=== PATIENT | male | born 1990 ===

== ENCOUNTER 2019-12-19 23:03 | Emergency (ER) | payer SELFPAY ==
[~2019-12-19] VITALS: Ht 172.7 cm; Wt 59.1 kg
[~2019-12-19 23:03] MED LIST: AMOXICILLIN875 MG PO; NORCO 325 MG-51 TAB PO
[2019-12-19 23:09] VITALS: BP 102/71; TEMP 97.6
[2019-12-20 00:06] VITALS: PULSE 67
== END 2019-12-20 00:07 | disposition home or self-care (01) ==
LOC: COL.ER 23:03
DX: K08.89 Other specified disorders of teeth and supporting structures (principal); F17.200 Nicotine dependence, unspecified, uncomplicated

== ENCOUNTER 2021-01-02 08:45 | Emergency (ER) | payer SELFPAY ==
[~2021-01-02] VITALS: Ht 172.7 cm; Wt 63.6 kg
[2021-01-02 08:51] VITALS: BP 108/69; PULSE 75; TEMP 97.6
[2021-01-02] MEDS ORDERED: AKTOB 5 ML5 ML OD (09:12)
== END 2021-01-02 09:25 | disposition home or self-care (01) ==
LOC: COL.ER 08:45
DX: H18.821 Corneal disorder due to contact lens, right eye (principal); F17.200 Nicotine dependence, unspecified, uncomplicated

== ENCOUNTER 2021-03-03 00:16 | Inpatient (IN) | payer SELFPAY ==
[~2021-03-03] VITALS: Ht 170.2 cm; Wt 75.5 kg
[2021-03-03] VITALS (40 sets, daily range): BP systolic 122–165; BP diastolic 78–99; PULSE 85–118; O2SAT 95–100
[~2021-03-03 00:16] MED LIST changes: +AKTOB 5 ML5 ML OD
[2021-03-03 00:56] LABS: BASO % 0.4 % (0.0-2.0); EOS # 0.1 K/mm3 (0.0-0.7); EOS % 1.6 % (0-4.0); GRAN # 5.8 K/mm3 (1.4-6.5); GRAN % 71.9 % (42.2-75.2); HEMATOCRIT 38.2 % (42.0-52.0); HEMOGLOBIN 13.1 g/dl (13.5-18.0); LYMPH # 1.3 K/mm3 (1.2-3.4); LYMPH % 16.1 % (20.0-51.0); MEAN CELL VOLUME 93 fl (80.0-100.0); MEAN CORPUSCULAR HEMOGLOBIN 32 pg (27.0-31.0); MEAN CORPUSCULAR HGB CONC 34 g/dl (33.0-37.0); MEAN PLATELET VOLUME 10.4 fl (7.4-10.4); MONO # 0.8 K/mm3 (0.1-0.6); MONO % 9.5 % (1.7-9.3); PLATELET COUNT 248 K/mm3 (130-400); RED BLOOD COUNT 4.11 M/mm3 (4.20-5.60); REDCELL DISTRIBUTION WIDTH-CV 12.1 % (11.5-14.5)
[2021-03-03 01:12] LABS: ALANINE AMINOTRANSFERASE 9 U/L (0-55); ALBUMIN 4.2 gm/dL (3.5-5.0); ALKALINE PHOSPHATASE 97 U/L (40-150); ANION GAP 12 mmol/L (7-16); AST,SGOT 16 U/L (5-34); BILIRUBIN,TOTAL 0.4 mg/dL (0.2-1.2); BLOOD UREA NITROGEN 27 mg/dL (9-21); CALCIUM 8.9 mg/dL (8.4-10.2); CARBON DIOXIDE 22 mmol/L (22-29); CHLORIDE 107 mmol/L (98-107); GLUCOSE 111 mg/dL (70-99); POTASSIUM 3.5 mmol/L (3.5-4.5); SODIUM 141 mmol/L (136-145); TOTAL PROTEIN 8.3 gm/dL (6.2-8.1)
[2021-03-03 01:13] LABS: ACETAMINOPHEN < 1.0 ug/mL (10-30); ALCOHOL(ethanol),MEDICAL < 10 mg/dL (0-10); SALICYLATE < 5.0 mg/dL (15.0-30.0)
[2021-03-03 10:57] LABS: COLLECTION METHOD CLEAN CATCH
[2021-03-03 11:15] LABS: MUCOUS Present (NOT PRESENT); PH 5 (5-8); SQUAMOUS EPITHELIAL 0-2 /hpf (0-10); URINE APPEARANCE Clear (CLEAR/HAZY); URINE BACTERIA None Seen (NONE SEEN); URINE BILIRUBIN Negative (NEGATIVE); URINE BLOOD Negative (NEGATIVE); URINE COLOR Yellow (YELLOW); URINE GLUCOSE Negative (NEGATIVE); URINE KETONE 1+ (NEGATIVE); URINE LEUKOCYTE ESTERASE Negative (NEGATIVE); URINE NITRATE Negative (NEGATIVE); URINE PROTEIN(semi-quant) Negative (NEGATIVE); URINE RBC 0-2 /hpf (0-2); URINE UROBILINOGEN Negative (NEGATIVE)
[2021-03-03 11:30] LABS: TRICYCLIC ANTIDEPRESS URINE POSITIVE
[2021-03-03 11:33] LABS: ALBUMIN 3.9 gm/dL (3.5-5.0); BILIRUBIN,TOTAL 0.5 mg/dL (0.2-1.2); CALCIUM 9.5 mg/dL (8.4-10.2); CREATININE, serum 0.93 mg/dL (0.72-1.25); TOTAL PROTEIN 7.8 gm/dL (6.2-8.1)
--- NOTE | 2021-03-03 21:21 | NUR ---
Received report from RAQUEL Barrientos. Awaiting patient arrival to unit at this time.
--- NOTE | 2021-03-03 21:58 | NUR ---
Patient had two belongings bag on person at time of arrival to unit. Belonging bags had clothing inside. No valuable on patient at this time. No other belongings with security.
--- NOTE | 2021-03-03 21:58 | NUR ---
This RN along with RT Judy went to ED and brought patient to ICU room 8 via stretcher at 2158. Patient transfered to ICU bed. VSS on RA. Patient has bilateral soft wrist restraints on at this time for medical line management. Patient alert to name but otherwise has inappropriate slurred speech. Patient has random episodes where he will wake up and jerk forwawrd and begin to pull at IV and roque and try to push nurses off and get out of bed. Received 1x order ofor 2mg of ativan to be given IV via ADITYA Solis. Roque patent and dependent to drainage with clear yellow urine. NS running at 125mls/hr Will resume care of patient at this time.
--- NOTE | 2021-03-03 23:22 | NUR ---
Patient clothing as well as cellphone, junior administrative assistant and empty wallet sent with security at this time.
--- NOTE | 2021-03-03 23:23 | NUR ---
Unable to complete much of admission intake assessment d/t patient AMS and a&ox1 and inappropriate slurred speech. Will reassess intake assessment when able.
[2021-03-04] VITALS (735 sets, daily range): BP systolic 105–138; BP diastolic 52–111; PULSE 78–96; TEMP 97.1–99; O2SAT 81–100
[2021-03-04 05:29] LABS: BASO % 0.2 % (0.0-2.0); EOS # 0.1 K/mm3 (0.0-0.7); EOS % 1.2 % (0-4.0); GRAN # 7.1 K/mm3 (1.4-6.5); GRAN % 77.1 % (42.2-75.2); HEMOGLOBIN 11.6 g/dl (13.5-18.0); LYMPH # 1.4 K/mm3 (1.2-3.4); MEAN CELL VOLUME 97 fl (80.0-100.0); MEAN CORPUSCULAR HEMOGLOBIN 32 pg (27.0-31.0); MEAN CORPUSCULAR HGB CONC 33 g/dl (33.0-37.0); MEAN PLATELET VOLUME 10.5 fl (7.4-10.4); MONO # 0.6 K/mm3 (0.1-0.6); MONO % 6.2 % (1.7-9.3); PLATELET COUNT 174 K/mm3 (130-400); RED BLOOD COUNT 3.66 M/mm3 (4.20-5.60); REDCELL DISTRIBUTION WIDTH-CV 12.2 % (11.5-14.5)
[2021-03-04 05:37] LABS: HEMATOCRIT 35.6 % (42.0-52.0)
[2021-03-04 05:49] LABS: CALCIUM 6.8 mg/dL (8.4-10.2); CREATININE, serum 0.61 mg/dL (0.72-1.25); MAGNESIUM 1.6 mg/dL (1.6-2.6)
[2021-03-04 05:51] LABS: POTASSIUM 2.8 mmol/L (3.5-4.5)
--- NOTE | 2021-03-04 07:00 | NUR ---
PT SLEEPING IN BED. PT IS LETHARGIC AND CONFUSED. PT IN SOFT WRIST RETRAINTS. VSS. IVF AND POTASSIUM RUNNING. WILL CONITNUE TO MEÑO.
--- NOTE | 2021-03-04 08:50 | NUR ---
PT STILL VERY LETHARGIC, PT RESPONDS TO PAIN. NOTIFIED AND ORDER RECEIVED FOR ABG. RT CALLED FOR ABG.
[2021-03-04 09:10] LABS: ARTERIAL BLD GAS O2 SATURATION 95.3 % (92-100); ARTERIAL BLD GAS TCO2 CT 19.5; ARTERIAL BLOOD GAS BASE EXCESS -4.8 (-2-2); ARTERIAL BLOOD GAS HCO3 18.6 meq/L (22-26); ARTERIAL BLOOD GAS PCO2 29.8 mmHg (35-45); ARTERIAL BLOOD GAS PO2 74.7 mmHg (80-100); ARTERIAL BLOOD GAS pH 7.41 (7.35-7.45)
--- NOTE | 2021-03-04 10:21 | NUR ---
The patient had a Seroquel overdose. The patient is now lethargic and unable to answer questions. SHANE contacted the patient's mother, Pato Hare (ph#[phone]), to complete intake. Pato lives in [place] with her /the patient's father, Naseem. Pato reports that the patient lives in [place] with his fiance, Suri Rico (ph#[phone]). She reports that he has a job, but is unsure where it is at. Pato reports that she believes the patient does have a PCP in [place]. Pato reports that the patient does not have a DPOA-HC. She states that the patient is not and that he has three children. Pato reports that the children are 13, either 3 or 4-years-old, and that he has a baby with Suri. Pato reports that the other two children are not Suri's. His parents are his next of kin. SHANE attempted to contact Suri to verify the above. SHANE left her a voicemail. The patient will need to be screened by Brett, once medically stable. 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 SHANE made a CPS report. Intake ID#[id number].
--- NOTE | 2021-03-04 10:30 | NUR ---
PT TAKEN TO CT SCAN. PT AWAKE SCREAMING. PT REORIENTED AND CALMED. WHEN BACK FROM CT PT STILL INTERMITTENTLY TRYING TO SIT UP AND SCREAM. PRN ATIVAN GIVEN.
--- NOTE | 2021-03-04 11:32 | NUR ---
The patient's fiance, Suri, returned 's phone call. Suri confirms that the patient and her her have a 9-month-old and a [id number] and that they all live together.
--- NOTE | 2021-03-04 11:50 | NUR ---
POISON CONTROL CALLED THIS RN AND WAS UPDATED ON PT STATUS.
[2021-03-04 12:12] LABS: ALANINE AMINOTRANSFERASE 12 U/L (0-55); AST,SGOT 21 U/L (5-34)
--- NOTE | 2021-03-04 21:24 | NUR ---
Received report from RAQUEL Hallman. All medications verified and all questions answered. VSS. Patient laying in bed sleeping. On RA. No concerns or complaints noted at this time. Will resume care of patient at this time.
[2021-03-05] VITALS (651 sets, daily range): BP systolic 100–146; BP diastolic 57–99; PULSE 54–131; TEMP 97.5–99.1; O2SAT 75–100
--- NOTE | 2021-03-05 03:45 | NUR ---
This RN noted patient continuing to become more agitated and restless and beginning to yell and cuss at nursing staff. Patient tried to wiggle down in bed to attempt to reach bilateral soft wrist restraints easier. This RN asked Charge, RN to assist with repositing and tightening patients restraints. This RN and composition molder walked into patient standing between bed and wall. Patient had wiggled down in bed and had undid velcro on restraint on right hand but was still restrained to be by left wrist and was standing and began yelling and cussing at nurses while trying to redirect and get patient to sit down. Patient then ripped all sheets of the bed and pulled all monitor chords off. Charge, RN called security and this RN called hospitalist and received order for precedex gtt to be initiated and another mg of ativan to be given. Patient placed in 4 point restraints at 0345. Security present at this time. Hospitalist at bedside at this time. Order placed for violent restraints. Will reassess need for restraints as needed.
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
--- NOTE | 2021-03-05 06:45 | NUR ---
PT IN 4 POINT RESTRAINTS. PT ON PRECEDEX DRIP. PT RESTING AT THIS TIME. VSS. WILL CONTINUE TO MONITOR.
--- NOTE | 2021-03-05 06:55 | NUR ---
Precedex gtt titrated to max of 1.5mcg/kg/hr per hospitalist running at a rate of 283.3mls/hr.
[2021-03-05 08:50] LABS: BASO % 0.3 % (0.0-2.0); EOS # 0.1 K/mm3 (0.0-0.7); EOS % 1.1 % (0-4.0); GRAN # 7.3 K/mm3 (1.4-6.5); GRAN % 74.1 % (42.2-75.2); HEMOGLOBIN 12.9 g/dl (13.5-18.0); LYMPH # 1.6 K/mm3 (1.2-3.4); LYMPH % 16.1 % (20.0-51.0); MEAN CELL VOLUME 93 fl (80.0-100.0); MEAN CORPUSCULAR HEMOGLOBIN 31 pg (27.0-31.0); MEAN CORPUSCULAR HGB CONC 34 g/dl (33.0-37.0); MEAN PLATELET VOLUME 10.3 fl (7.4-10.4); MONO # 0.8 K/mm3 (0.1-0.6); MONO % 8.1 % (1.7-9.3); PLATELET COUNT 213 K/mm3 (130-400); RED BLOOD COUNT 4.11 M/mm3 (4.20-5.60); REDCELL DISTRIBUTION WIDTH-CV 12.2 % (11.5-14.5)
[2021-03-05 09:03] LABS: CALCIUM 8.4 mg/dL (8.4-10.2); CREATININE, serum 0.74 mg/dL (0.72-1.25); POTASSIUM 3.6 mmol/L (3.5-4.5)
--- NOTE | 2021-03-05 09:49 | NUR ---
The hospitalist notified SHANE that the patient is medically stable and he would be ready for [facility] to screen the patient. The patient has been heavily sedated, due to becoming combative and agressive with staff. Plan is to wean the patient from meds. SHANE contacted and faxed records to [facility] for them to screen. SHANE updated the patient's RN.
--- NOTE | 2021-03-05 10:38 | NUR ---
Initial visit attempt; left his nurse with the message that Online Advertising Director is always near to steel handler to patient if so desired. Nurse thanked .
--- NOTE | 2021-03-05 11:19 | NUR ---
[facility] contacted the patient's RN. The patient's RN plans to contact Brett back to set up the screening time, once the patient wakes up.
--- NOTE | 2021-03-05 18:16 | NUR ---
PRECEDEX DRIP OFF. PT IS AWAKE AND ORIENTED. SARAH CALLED FOR SCREENING. ON FLOOR AND NOTIFIED.
--- NOTE | 2021-03-05 18:30 | NUR ---
Received report from RAQUEL Hallman. All medications verified and all questions answered. Patient A&Ox4 resting in bed doing psych eval screen with [facility]. VSS. Patient on RA. D5NS running at 60mls/hr. Patient in 4 point locked restraints on right wrist and right leg only. Patient cooperative with care at this time. Will resume care of patient at this time.
--- NOTE | 2021-03-05 18:31 | NUR ---
PT HAVING [facility] SCREEING WITH SAW.
--- NOTE | 2021-03-05 21:12 | NUR ---
ADITYA Solis in patient room at bedside at 1940 and patient stated he wanted to leave AMA. PA reviewed risks of leaving AMA and patient stated he understood and wanted to leave. AMA paperwork signed. Patient medically cleared and cleared from [facility]. Patient received safety plan faxed over from [facility] services. Right leg and right wrist 4 point restraint taken off at 1934. Patient compliant and cooperative with care and a&ox4. Patient received sandwhich box from ER and ate without any difficulties or nausea. Patient was given belongings from security and changed into personal clothes, patient left with personal cellphone. Patient called fiance for ride. Patient left facility with fiance at 2111.
== END 2021-03-05 21:12 | disposition left against medical advice (07) | DRG 918 ==
LOC: COL.ER 00:16 → ICU 14:17
PROVIDERS: Emergency Medicine; Student in an Organized Health Care Education/Training Program; ADMIT Internal Medicine
DX: T43.592A Poisoning by other antipsychotics and neuroleptics, intentional self-harm, initial encounter (principal); T43.595A Adverse effect of other antipsychotics and neuroleptics, initial encounter; T14.91XA Suicide attempt, initial encounter
CPT/HCPCS: 99233-AI; G0378; J1630; J1650; J2060; J3475; J3480; J3486; J7030; J7042